=== PATIENT | male | born 1935 | race Caucasian/White ===

== ENCOUNTER 2019-08-20 10:53 | Inpatient (IN) | payer OTHER, BC ==
[~2019-08-20] VITALS: Ht 177.8 cm; Wt 52.7 kg
[2019-08-20] VITALS (10 sets, daily range): BP systolic 88–146; BP diastolic 52–92
--- NOTE | ~2019-08-20 | EMS ---
[address] [address] EMS Patient Care Report Name: GARRETT REILLY Room #: 170-6 ADM IN M.R.#: [id number] Admission: 08/20/19 Attend Phys: Davian Taylor MD Discharge: Date of : 36 Report #: [id number] THIS REPORT FOR: //name// Report Transmitted: 08/20/2019 14:40 EMS Care Summary [facility] MED-ACT Incident [id number] @ 08/20/2019 10:14 Incident Location [address] [place] [address] Patient GARRETT REILLY Male, 84 Years 1935 Patient Address [address] [place] [address] Patient History Dementia,Hypertension (HTN),Alzheimer's,Hyperlipidemia,Atrial Fibrillation,Hypothyroidism,Insomnia, Patient Allergies Aspirin, Patient Medications Trazodone, Tamsulosin, Donepezil, Levothyroxine, Simvastatin, Finasteride, Sertraline, Carvedilol, Chief Complaint nausea, vomiting, diarrhea Disposition Transported No Lights/[place] [facility] Transported To [facility] Narrative Alejo was found in his shower with staff getting Alejo cleaned up and washed. Staff reported about 30 minutes prior, Alejo was changed and given breakfast. [address] [address] EMS Patient Care Report Name: GARRETT REILLY Room #: 170-6 ADM IN Joan.#: [id number] Admission: 08/20/19 Attend Phys: Davian Taylor MD Discharge: Date of : 36 Report #: [id number] They walked by to see Alejo with head laceration, so they investigated. They noticed Alejo had vomited and had diarrhea all over himself. Staff denied Alejo being on any blood thinners. Staff stated [facility] of choice. Alejo stated he was feeling better. He was assisted from shower to cot then moved to unit. Vitals and ECG monitored, cold pack applied to head and knee. [facility] contacted. Improvement in Alejo's nausea and vomiting. Patient care transferred to [facility]. Alejo was moved to hospital bed via sheet pull. Initial Vitals @10:38P: 80,BP: 120/29,SpO2: 89, @10:36P: 102,SpO2: 87,FL Suspected: false @10:27P: 80,R: 16,BP: 101/65,Pain: 0/10,GCS: 15,Temp: 96.9F,SpO2: 93,Revised Trauma: 12, @10:47P: 79,R: 18,BP: 110/63,Pain: 0/10,SpO2: 98,FL Suspected: false @10:39P: 73,BP: 107/59,SpO2: 97, @10:44P: 68,SpO2: 95, Assessments @10:25MENTAL:Confused,Place Oriented,Person Oriented,SKIN:HEENT:Head/Face: Other,Eyes: Left Pupil: 4-mm,Eyes: Right Pupil: 4-mm,Neck/Airway: No Abnormalities,LUNG SOUNDS:ABDOMEN:PELVIS//GI:EXTREMITIES:Right Leg: Other,Left Arm: No Abnormalities,Right Arm: No Abnormalities,Left Leg: No Abnormalities,PULSE:NEURO:No Abnormalities, Impression Nausea Procedures @10:25Ondansetron - 4 Milligrams (mg) - OralResponse: Improved Timeline 10:12,Call Received 10:12,Psap Call 10:14,Dispatched 10:14,En Route 10:16,On Scene 10:20,At Patient 10:25,Ondansetron - 4 Milligrams (mg) - Oral,Response: Improved 10:27,BP: 101/65 M,PULSE: 80,RR: 16 R,SPO2: 93 Ox,ETCO2: ,BG: ,PAIN: 0,GCS: 15, 10:32,Depart Scene 10:36,BP: / M,PULSE: 102,RR: R,SPO2: 87 Ox,ETCO2: ,BG: ,PAIN: ,GCS: , 10:38,BP: 120/29 M,PULSE: 80,RR: R,SPO2: 89 Ox,ETCO2: ,BG: ,PAIN: ,GCS: , 10:39,BP: 107/59 M,PULSE: 73,RR: R,SPO2: 97 Ox,ETCO2: ,BG: ,PAIN: ,GCS: , 10:44,BP: / M,PULSE: 68,RR: R,SPO2: 95 Ox,ETCO2: ,BG: ,PAIN: ,GCS: , 10:46,At Destination [facility] [address] [place] [address] EMS Patient Care Report Name: GARRETT REILLY Room #: 170-6 ADM IN M.R.#: [id number] Admission: 08/20/19 Attend Phys: Davian Taylor MD Discharge: Date of : 36 Report #: [id number] 10:47,BP: 110/63 M,PULSE: 79,RR: 18 R,SPO2: 98 Ox,ETCO2: ,BG: ,PAIN: 0,GCS: , 11:00,Call Closed Disclaimer v1.1 Copyright 2020 [employer] This EMS Care Summary contains data elements from the applicable legal record (which may be displayed differently). It is designed to provide pertinent information for the following purposes: continuity of care, clinical quality, and state data reporting. The complete legal record is available to ED staff and administrators of the receiving hospital in [employer]'s Patient Tracker. All data is provided "as is."
[2019-08-20] MEDS ORDERED: ARICEPT10 M1 PO (11:25)
[2019-08-20] MEDS ORDERED: LEVO-T100 MCG PO (11:25)
[2019-08-20] MEDS ORDERED: CARVEDILOL12.5 MG PO (11:25)
[2019-08-20] MEDS ORDERED: PROSCAR 5MG TABL5 M1 PO (11:25)
[2019-08-20] MEDS ORDERED: LISINOPRIL2.5 MG PO (11:26)
[2019-08-20] MEDS ORDERED: NAMENDA 10 MG T10 MG PO (11:26)
[2019-08-20] MEDS ORDERED: SERTRALINE HCL100 MG PO (11:27)
[2019-08-20] MEDS ORDERED: SIMVASTATIN80 MG PO (11:27)
[2019-08-20] MEDS ORDERED: FLOMAX0.4 MG PO (11:28)
[2019-08-20] MEDS ORDERED: ZINC SULFATE220 MG PO (11:29)
[2019-08-20] MEDS ORDERED: TRAZODONE HCL50 MG PO (11:29)
[2019-08-20] MEDS ORDERED: SEROQUEL 25 MG25 MG PO (11:30)
[2019-08-20 11:45] LABS: ABSOLUTE NEUTROPHILS 6.5 thou/uL (1.4-8.2); BASOPHILS 0.4 % (0.0-2.0); EOSINOPHILS 1.6 % (0.0-3.0); HEMATOCRIT 42.7 % (42.0-52.0); HEMOGLOBIN 14.3 gm/dL (14.0-18.0); LYMPHOCYTES 9.2 % (24.0-44.0); MCH 32.8 pg (26.0-34.0); MCHC 33.5 g/dL (28.0-37.0); MCV 98.1 fL (80.0-100.0); MONOCYTES 8.4 % (1.0-8.0); PLATELET COUNT 182 thou/uL (150-400); POLYS 80.4 % (36.0-66.0); RBC 4.36 mil/uL (4.50-6.00); RDW 12.8 % (10.5-14.5); WBC 8.1 thou/uL (4.0-11.0)
[2019-08-20 11:55] LABS: ANION GAP 9 mmol/L (7-16); BUN 21 mg/dL (7-18); CALCIUM 9.7 mg/dL (8.5-10.1); CHLORIDE 104 mmol/L (98-107); CO2 27 mmol/L (21-32); CREATININE 1.1 mg/dL (0.7-1.3); GLUCOSE 108 mg/dL (74-106); POTASSIUM 4.4 mmol/L (3.5-5.1); SODIUM 140 mmol/L (136-145)
[2019-08-20 12:06] LABS: ALBUMIN 3.7 g/dL (3.4-5.0); LIPASE 222 U/L (73-393); SGOT 60 U/L (15-37); SGPT 34 U/L (30-65); TOTAL BILIRUBIN 0.5 mg/dL (<0.1-1.0); TOTAL PROTEIN 7.2 g/dL (6.4-8.2); TROPONIN-I <0.06 ng/mL (<0.06)
--- NOTE | 2019-08-20 12:15 | NUR ---
DR MODI CALLS AND STATES TO THIS PIPE TESTING TECHNICIAN THAT THE SNF THAT PT COMES FROM HAS MULTIPLE POSITIVE CASES OF COVID-19. DR VERDUGO UPDATED. PT PLACED IN PERCAUSTIONS AT THIS TIME AND ALL DEPTS UPDATED TO BE PLACED ON THE LIST
[2019-08-20 14:10] LABS: URINE BILIRUBIN NEGATIVE (Negative); URINE BLOOD NEGATIVE (Negative); URINE CLARITY CLEAR; URINE COLOR YELLOW; URINE GLUCOSE-RANDOM* NEGATIVE (Negative); URINE KETONES NEGATIVE (Negative); URINE NITRITE-REFLEX NEGATIVE (Negative); URINE PROTEIN (DIPSTICK) NEGATIVE (Negative); URINE SPECIFIC GRAVITY 1.015 (1.005-1.035); URINE UROBILINOGEN 0.2 E.U./dl (0.2-1.0)
[2019-08-20 14:13] LABS: URINE LEUKOCYTES-REFLEX 2+ (Negative)
[2019-08-20 14:19] LABS: BACTERIA-REFLEX >30 Many /HPF (None Seen); SQUAMOUS None Seen /LPF (0-3); URINE RBC None Seen /HPF (0-2); URINE WBC-REFLEX >25 Many /HPF (0-5)
[2019-08-20 14:20] LABS: CASTS None Seen /LPF (None Seen); CRYSTALS None Seen /LPF (None Seen)
--- NOTE | 2019-08-20 15:21 | NUR ---
SPOKE WITH YANN POWER AT FACILITY. TO GIVE UPDATE ON PT.
[2019-08-20 16:27] LABS: ALBUMIN 3.8 g/dL (3.4-5.0); TOTAL PROTEIN 7.2 g/dL (6.4-8.2)
[2019-08-20 16:54] LABS: TSH 3.189 uIU/mL (0.358-3.740)
--- NOTE | 2019-08-20 18:44 | NUR ---
ASSUMED CARE OF PATIENT FROM ED AT 1656. PATIENT IN ISOLATION FOR COVID RULE OUT. PAITENT ALERT TO SELF, PLACE AND SITUATION. PATIENT IN AFIB WITH HR INCREASING TO 150S, SUSTAINING FOR 15 MIN. CARDIZEM DRIP ORDERED BY DR. MONROY AND CALLED PHARMACY TO APPROVE SEND VIA LIFT. PATIENT IS IMPULSIVE, BED ALARM SET. PATIENT DENIES ANY NAUSEA AND NO VOMITING WHILE ON 3W. PATIENT TO CONTINUE WITH POC.
--- NOTE | 2019-08-20 19:30 | NUR ---
Patient confused, got out of bed, looking for his shoes to go home. Would not listen to verbal instruction to sit down. Strong but gait unsteady. He managed to snap iv tubing apart. Assisted back to bed. Fall precautions in place.
[2019-08-21 01:30] VITALS: BP 95/55
[2019-08-21 02:30] VITALS: BP 90/57
[2019-08-21 04:25] VITALS: BP 115/62
--- NOTE | 2019-08-21 04:48 | NUR ---
Patient making slow progress towards outcome goals. Denies pain. OFF Cardizem drip. HR 60's and sbp dropped to 88, BP now up to 115/67 HR 60's. Rhthm still Afib that is baseline for patient. IV fluids infusing. Temp 99.2 orally. Agiation resolved after PRN Seroquel. High fall risks, fall precautions in place.
[2019-08-21 05:48] LABS: HEMATOCRIT 34.6 % (42.0-52.0); MCH 32.5 pg (26.0-34.0); MCV 98.5 fL (80.0-100.0); RBC 3.52 mil/uL (4.50-6.00); RDW 13.4 % (10.5-14.5); WBC 13.6 thou/uL (4.0-11.0)
[2019-08-21 05:49] LABS: HEMOGLOBIN 11.4 gm/dL (14.0-18.0)
[2019-08-21 06:02] LABS: CALCIUM 8.3 mg/dL (8.5-10.1); CREATININE 1.1 mg/dL (0.7-1.3); MAGNESIUM 1.6 mg/dL (1.8-2.4); PHOSPHORUS 3.5 mg/dL (2.5-4.9); POTASSIUM 4.1 mmol/L (3.5-5.1)
--- NOTE | 2019-08-21 08:20 | EKG ---
[facility] [place] [address] ELECTROCARDIOGRAM REPORT Name: GARRETT REILLY Room #: 361-P ADM IN M.R.#: [id number] Admission: 08/20/19 Attend Phys: Davian Taylor MD Discharge: Date of : 36 Report #: [id number] THIS REPORT FOR: cc: FAM - Family physician unknown FAM - Family physician unknown Yonas Davis MD ~ THIS REPORT FOR: //name// [facility] ED Test Date: 2019-08-20 Test Time: 11:05:54 Pat Name: GARRETT REILLY Department: Room: [facility] Gender: M Clinical Appeals Specialist: [facility] : 1935 Requested By: Torey Vieira Order Number: [id number] MD: Yonas Davis Measurements Intervals [place] Rate: 70 P: CO: QRS: 11 QRSD: 69 T: 13 QT: 399 QTc: 431 Interpretive Statements Atrial fibrillation Probable anteroseptal infarct, old No previous ECG available for comparison Electronically Signed On 08-21-2019 8:18:47 CDT by Yonas Davis [email or web address] <ELECTRONICALLY SIGNED> By: Yonas Davis MD 08/21/19 0818 1105 1105 Yonas Davis MD /[place]
[2019-08-21 08:41] VITALS: BP 100/64
--- NOTE | 2019-08-21 09:59 | NUR ---
Nutrition: RD received consult stating pt from facility. Admit with CP, UTI, S/P fall, head laceration. COVID pending. N/V/D at facility, KUB showed nonspecific bowel gas pattern. Clear liquid diet at present. PMH includes dementia and pt alert to self/impulsive. S/W Brianna over phone. She relays pt has gained 20# since moving to the Memory care unit in May. BMI 20, normal status. Intake has been very good and pt does not use supplements. Monitor for timely diet advancement but place as low nutrition risk for now.
--- NOTE | 2019-08-21 11:51 | NUR ---
INITIAL ASSESSMENT: FER reviewed chart and spoke with nursing and attending physician. Pt was admitted from [facility] due to UTI/recent fall. Pt was placed in Enhanced Isolation to r/o COVID-19. Pt's test is negative. Pt with hx of dementia. FER spoke with ILIANA Magdaleno at [facility] who states pt has been in their facility since May of this year. Prior to admission, pt was not using any DME. Pt has been able to feed him self and would need set up for showering/bathing/grooming. Facility SPLASH LINE OPERATOR recommended pt go to [facility] for short term rehab stay prior to returning to [facility]. FER spoke with pt's , Brianna, via phone. Introduced role of FER. Pt's is agreeable with referral to [facility] SNF. Awaiting therapy evals at this time. FER faxed clinical info and COVID-19 results to [facility] and notified liaison of new referral. FER is following to assist as needed with discharge planning.
--- NOTE | 2019-08-21 15:50 | NUR ---
TESTED NEGATIVE FOR COVID19 - RESWABBED TODAY. PENDING RESULTS.
--- NOTE | 2019-08-21 15:51 | NUR ---
ASSUMED CARE OF PT AT 0700. PT PLEASANTLY CONFUSED. VOICING NO CONCERNS. DENIES PAIN. BREATHING COMFORTABLY ON ROOM AIR. IMPULSIVE, MAKING ATTEMPS TO GET OUT OF BED, USUALLY WHEN NEEDING TO USE BATHROOM. INAVERTENTLY PULLED OUT IV. UP TO CHAIR WITH MEALS. VITALS STABLE. NO RESPIRATORY SYMTPTOMS. AFEBRILE. IV ABX INFUSING PER ORDER. FIRST COVID19 SWAB NEGATIVE. RESWABBED TODAY POST 24 HOURS. RESULTS PENDING. WILL CONT TO MONITOR.
[2019-08-21 17:01] VITALS: BP 137/74
[2019-08-21 18:57] VITALS: BP 134/69
--- NOTE | 2019-08-21 19:12 | NUR ---
PT SITTING IN CHAIR. TV ON. IVF INTACT. CHAIR ALARM ON. LUNGS DIMINISHED. PT ORIENTED TO SELF. PT CONVERSES CLEARLY, [facility] CONTACT. CHAIR ALARM ON. EXTREMITIES COOL TO THE TOUCH.
--- NOTE | 2019-08-21 19:58 | NUR ---
PT TALKING LOUDLY TO HIMSELF, STATING HE IS GOING TO GET OUT OF HERE. STATING LOOKING FOR HIS SHOES TO GO HOME. PT RESTLESS, KNOCKING ITEMS OFF TABLE, PRN X1. PT PROVIDED SNACK.
[2019-08-22 04:52] VITALS: BP 154/90
[2019-08-22 05:59] LABS: HEMATOCRIT 34.8 % (42.0-52.0); HEMOGLOBIN 11.6 gm/dL (14.0-18.0); MCH 32.8 pg (26.0-34.0); MCHC 33.3 g/dL (28.0-37.0); MCV 98.6 fL (80.0-100.0); RBC 3.53 mil/uL (4.50-6.00); RDW 13.2 % (10.5-14.5); WBC 11.2 thou/uL (4.0-11.0)
[2019-08-22 06:12] LABS: CALCIUM 8.2 mg/dL (8.5-10.1); CREATININE 1.1 mg/dL (0.7-1.3); MAGNESIUM 1.8 mg/dL (1.8-2.4); PHOSPHORUS 1.8 mg/dL (2.5-4.9); POTASSIUM 3.9 mmol/L (3.5-5.1)
[2019-08-22 08:52] VITALS: BP 141/84
--- NOTE | 2019-08-22 09:46 | NUR ---
PT 2ND COVID19 TEST CAME BACK NEGATIVE. WAITING ON HOSPITALIST AND INFECTIOUS DISEASE DOCTOR.
--- NOTE | 2019-08-22 10:23 | NUR ---
PT CARE ASSUMED AT 0700, PT ALERT AND ORIENTED X2, PLEASANTLY CONFUSED, IMPULSIVE AT TIMES. PT ABLE TO FOLLOW COMMANDS, DENIES ANY CHEST PAIN, NAUSEA AND VOMITING. PT IS ON ROOM AIR, NO SIGNS OF DISTRESS NOTED. PT IS UP IN CHAIR, CHAIR ALARM ON. DENIES NEEDS AT THE MOMENT. CALL LIGHT AND TABLE IN REACH. WILL CONTINUE TO MONITOR
--- NOTE | 2019-08-22 12:36 | NUR ---
PT 2ND COVID CAME BACK NEGATIVE, NO COUGH OR FEVER. PT IS ON ROOM AIRT, NO RESPIRATORY DISTRESS NOTED. INFECTIOUS DISEASE PAGED A COUPLS OF TIMES, NO ANSWER YET.
[2019-08-22 15:30] VITALS: BP 139/73
--- NOTE | 2019-08-22 15:47 | NUR ---
REPORT GIVEN TO YANN MARS. PT BELONGINGS PACKED AND TRANSFER TO 2N, 203
--- NOTE | 2019-08-22 16:46 | NUR ---
PATIENT TRANSFERRED TO FROM AT 1530. PATIENT BROUGHT VIA WHEELCHAIR AND AMBULATED TO THE CHAIR A STAND BY ASSIST. PATIENT PLACED IN 203, NEAR THE NURSE'S STATION DUE TO CONFUSION AND IMPULSIVE NATURE. ASSESSMENT COMPLETED. TELE PLACED ON THE PATIENT. PATIENT RESTING COMFORTABLY IN THE CHAIR WITH THE CHAIR ALARM ON.
[2019-08-22 19:20] VITALS: BP 150/96
--- NOTE | 2019-08-22 19:54 | NUR ---
ASSUMED CARE OF PATIENT A TRANSFER FROM . ASESSMENT COMPLETED. PATIENT RESTING COMFORTABLY IN BED WITH ALARM ON. PATIENT IS IMPULSIVE. IV ABX. HR RATE INCREASES TO 140-1500 WITH ACTIVITY. PATIENT TO CONTINUE WITH POC.
[2019-08-22 23:44] VITALS: BP 154/92
--- NOTE | 2019-08-23 00:52 | NUR ---
TOOK OVER CARE AT 2300. PT AWAKE AND RESTLESS IN BED. ASSISTED WITH URINATION AND UP TO CHAIR. ALARM SET. IVF INTACT.
--- NOTE | 2019-08-23 02:15 | NUR ---
PT UP EVERY HOUR TO URINATE 100 TO 150CC. PT HAD 3 SMALL BMS.
[2019-08-23 04:33] VITALS: BP 142/86
[2019-08-23 04:35] LABS: HEMOGLOBIN 13.1 gm/dL (14.0-18.0); MCH 32.8 pg (26.0-34.0); MCHC 33.6 g/dL (28.0-37.0); MCV 97.8 fL (80.0-100.0); RBC 3.99 mil/uL (4.50-6.00); RDW 12.9 % (10.5-14.5); WBC 12.2 thou/uL (4.0-11.0)
[2019-08-23 04:50] LABS: CALCIUM 8.8 mg/dL (8.5-10.1); CREATININE 0.9 mg/dL (0.7-1.3); MAGNESIUM 1.6 mg/dL (1.8-2.4); PHOSPHORUS 1.7 mg/dL (2.5-4.9); POTASSIUM 3.6 mmol/L (3.5-5.1)
[2019-08-23 07:20] VITALS: BP 167/80
[2019-08-23 16:30] VITALS: BP 130/81
--- NOTE | 2019-08-23 18:02 | NUR ---
ASSUMED CARE OF PATIENT AT 0700. ASSESSMENT COMPLETED. PATIENT ALERT TO SELF, PLEASANT. PATIENT IMPULSIVE. AMBULATES TO BATHROOM STAND BY ASSIST. IV ABX. DENIES PAIN. PT TO CONTINUE WITH POC.
[2019-08-23 19:59] VITALS: BP 95/73
[2019-08-24] VITALS (8 sets, daily range): BP systolic 127–150; BP diastolic 72–88
[2019-08-24 04:47] LABS: HEMOGLOBIN 12.6 gm/dL (14.0-18.0); MCH 33.2 pg (26.0-34.0); MCHC 34.1 g/dL (28.0-37.0); MCV 97.2 fL (80.0-100.0); RBC 3.81 mil/uL (4.50-6.00); RDW 12.6 % (10.5-14.5); WBC 10.4 thou/uL (4.0-11.0)
[2019-08-24 04:51] LABS: CALCIUM 8.3 mg/dL (8.5-10.1); CREATININE 0.9 mg/dL (0.7-1.3); MAGNESIUM 1.5 mg/dL (1.8-2.4); POTASSIUM 3.4 mmol/L (3.5-5.1)
--- NOTE | 2019-08-24 06:39 | NUR ---
ALERT TO SELF.CONFUSED.SLEPT ALMOST ALL NIGHT.REPOSITIONED Q2 HOURS AND NEEDED.MAG AND K REPLACED THIS AM.MONITOR SHOWS AFIB.POC CONTINUED.
--- NOTE | 2019-08-24 09:08 | 2DMMODE ---
[facility] [place] [address] 2 D/M-MODE ECHOCARDIOGRAM Name: GARRETT REILLY Room #: 203-P ADM IN M.R.#: [id number] Admission: 08/20/19 Attend Phys: Davian Taylor MD Discharge: Date of : 36 Report #: [id number] THIS REPORT FOR: cc: FAM - Family physician unknown FAM - Family physician unknown Denys Montanez MD ~ APPROVED REPORT Study performed: 08/22/2019 10:04:47 EXAM: Comprehensive 2D, Doppler, and color-flow Echocardiogram Patient Location: Bedside Room #: 361 Status: routine BSA: 1.79 HR: 60 bpm BP: 141/84 mmHg Rhythm: Atrial Fibrillation Other Information Study Quality: Adequate Indications Atrial Fibrillation Hypertension/HDD Elevated BNP, HLD 2D Dimensions RVDd: 37.83 mm IVSd: 8.26 (7-11mm) LVOT Diam: 22.44 (18-24mm) LVDd: 41.38 mm PWd: 8.26 (7-11mm) Ascending Ao: 29.52 (22-36mm) LVDs: 32.23 (25-40mm) Aortic Root: 28.06 mm IVC: 24.00 mm Volumes Left Atrial Volume (Systole) Single Plane 4CH: 73.37 mL Single Plane 2CH: 67.66 mL LA ESV Index: 42.00 mL/m2 Aortic Valve AoV Peak Dontrell.: 1.02 m/s AO Peak Gr.: 4.19 mmHg LVOT Max P.87 mmHg LVOT Max V: 0.47 m/s [facility] [address] [place] [address] 2 D/M-MODE ECHOCARDIOGRAM Name: GARRETT REILLY Room #: 203-P ADM IN M.R.#: [id number] Admission: 08/20/19 Attend Phys: Davian Taylor, Discharge: Date of : 36 Report #: [id number] Vmax: 1.80 cm2 Mitral Valve MV Decel. Time: 154.32 ms MV E Max Dontrell.: 0.97 m/s IVRT: 89.20 ms Pulmonary Valve PV Peak Dontrell.: 0.90 m/s PV Peak Gr.: 3.22 mmHg Tricuspid Valve TR Peak Dontrell.: 2.44 m/s RAP Estimate: 15.00 mmHg TR Peak Gr.: 23.76 mmHg PA Pressure: 39.00 mmHg Left Ventricle The left ventricle is normal size. There is normal left ventricular wall thickness. Left ventricular systolic function is mild to moderately decreased. LVEF is 40-45%. This study is not technically sufficient to allow evaluation of the LV diastolic function due to atrial fibrillation. Right Ventricle The right ventricle is normal size. Atria Left atrium is severely dilated. Right atrium is mildly dilated. Aortic Valve Aortic valve is mildly calcified. Trace aortic regurgitation. There is no aortic valvular stenosis. Mitral Valve The mitral valve is normal in structure. Moderate to severe mitral regurgitation No evidence of mitral valve stenosis. Tricuspid Valve The tricuspid valve is normal in structure. Mild tricuspid regurgitation. PAP is estimated at 35 mmHg. Pulmonic Valve The pulmonary valve is normal in structure. Mild pulmonic regurgitation. Great Vessels [facility] [address] [place] [address] 2 D/M-MODE ECHOCARDIOGRAM Name: GARRETT REILLY Room #: 203-P ADM IN M.R.#: [id number] Admission: 08/20/19 Attend Phys: Davian Taylor, Discharge: Date of : 36 Report #: [id number] The aortic root is normal in size. IVC is dilated and collapses <50% with inspiration. Pericardium There is no pericardial effusion. <Conclusion> The left ventricle is normal size. Left ventricular systolic function is mild to moderately decreased. LVEF is 40-45%. The right ventricle is normal size. Left atrium is severely dilated. Aortic valve is mildly calcified. Moderate to severe mitral regurgitation Mild tricuspid regurgitation. PAP is estimated at 35 mmHg. <ELECTRONICALLY SIGNED> By: Denys Montanez MD 08/24/19905 5 5 Denys Montanez MD /INF
--- NOTE | 2019-08-24 12:05 | NUR ---
Followup: reconsulted to evaluate. Hx fall, head laceration, UTI. Pt sleeping at time of visit. Spoke with nurse, pt has been impulsive, no eating as well this am. Phos, Mg low and needing replacement. Prealbumin wnl. Past original consult, had stated pt had gained nearly 20 lb while at Memory Care unit. Will add oral supplement ensure enlive bid as pt borderline low BMI and not eating well this past couple days. No new wt. Remains low nutrition risk.
--- NOTE | 2019-08-24 13:42 | NUR ---
SW reviewed chart and spoke with attending physician. Pt was transferred to from 3W after second negative COVID-19 test. invoicing machine operator to fax clinical updates and therapy evals to [facility] when available. Discharge to SNF is anticipated for tomorrow. SW notified [facility] liaison of anticipated discharge for tomorrow. FER spoke with pt's , Brianna, via phone to provide update and discuss discharge plan. Brianna is aware and in agreement with plan. FER is following to assist as needed with discharge planning.
--- NOTE | 2019-08-24 15:51 | NUR ---
FAXED CLINICAL UPDATE TO [facility] OF OP SPOKE WITH RAFAT IN ADM SHE RECEIVED UPDATE POSS DC TOMORROW. DP TO FOLLOW.
--- NOTE | 2019-08-24 18:37 | NUR ---
PT CARE ASSUMED AT 0700. ASSESSMENTS CHARTED. MEDICATION CHARTED. MEDICATION NEEDS TO BE EITHER ONE TAB AT A TIME OR CRUSHED, PT WILL CHEW OTHERWISE. UP IN CHAIR 6 HOURS, TOLERATED WELL. PT CALLS FOR URINAL. PT TO REHAB - [facility], POSSIBLY TOMORROW WAS TOLD IT WOULD BE TODAY.
[2019-08-25] VITALS (15 sets, daily range): BP systolic 95–148; BP diastolic 51–94
--- NOTE | 2019-08-25 03:47 | NUR ---
ALERT TO SELF.CONFUSED.REPOSITIONED Q2 HOURS AND NEEDED.SLEPT MOST OF THE NIGHT.MONITOR SHOWS AFIB.POSSIBLE D/C TODAY.POC CONTINUED.
[2019-08-25 09:10] LABS: ALBUMIN 2.5 g/dL (3.4-5.0); CALCIUM 8.1 mg/dL (8.5-10.1); CREATININE 1.1 mg/dL (0.7-1.3); MAGNESIUM 1.6 mg/dL (1.8-2.4); POTASSIUM 3.6 mmol/L (3.5-5.1); TOTAL BILIRUBIN 0.9 mg/dL (<0.1-1.0); TOTAL PROTEIN 6.1 g/dL (6.4-8.2)
--- NOTE | 2019-08-26 03:46 | NUR ---
ASSUMED PT CARE AT AROUND 1900, PT IS AWAKE, ALERT AND ORIENTEDX4, SR ON THE MONITOR, DENIES PAIN, SOB, DIZZINESS OR LIGHTHEADEDNESS, VSS, ASSESSMENTS CHARTED, CONSENT SIGNED FOR PROCEDURE TODAY, PT IS LAYING IN BED AND WATCHING TV AT THIS TIME, NO DISTRESS NOTED, WILL CONTINUE TO MONITOR
--- NOTE | 2019-08-26 04:23 | NUR ---
ASSUMED PT CARE AT 1900, PT IS ALERT, AWAKE, ORIENTED TO PERSON, AFIB ON THE MONITOR, REMAINED IN BED WHOLE NIGHT HR STABLE, ASSESSMENTS CHARTED, DENIES PAIN OR SOB, VSS ON 5L NC, TOLERATING WELL, NO EPISODES OF AGITATION THUS FAR, LAYING IN BED AT THIS TIME, NO DISTRESS NOTED, WILL CONTINUE TO MONITOR
[2019-08-26 05:00] VITALS: BP 133/66
[2019-08-26 07:36] VITALS: BP 124/63
--- NOTE | 2019-08-26 11:41 | NUR ---
ASSUMMED PT CARE AT APPROXIMATELY 1115. PT AWAKE AND ORIENTED TO SELF AND LOCATION. PT C HX OF DEMENTIA. REORIENTATION PROVIDED. ASSESSMENT CHARTED. PT COMFORTABLE IN BED. PT DENIES HAVING FURTHER CONCERNS. HR AND VITAL SIGNS STABLE.
[2019-08-26 11:53] VITALS: BP 121/71
--- NOTE | 2019-08-26 14:25 | NUR ---
FAXED CLINICAL UPDATE TO [facility] OF OP RECEIVED CONFIRMATION AND SPOKE WITH RAFAT CABRALES THAT PT SHOULD DC TOMORROW.
[2019-08-26 16:30] VITALS: BP 112/67
--- NOTE | 2019-08-26 17:45 | NUR ---
ASSUMMED PT CARE AT APPROXIMATELY 1115. PT AWAKE AND ORIENTED TO PERSON AND LOCATION. PT C HX OF DEMENTIA. FREQUENT REORIENTATION PROVIDED. FALL PRECATIONS IN PLACE. ASSESSMENT CHARTED. PT UP TO CHAIR THROUGHOUT SHIFT. PT WORKED C PHYSICAL AND OCCUPATIONAL THERAPY. PHYSICAL THERAPY STATED THE PT USES WALKER C X2 ASSIST. ELECTROLYTE PROTOCOL FOLLOWED. VITAL SIGNS STABLE. INFORMED DR. CALHOUN OF PT'S LOW GRADE FEVER. MEDS GIVEN. PT AFEBRILE. PT COMFORTABLE IN BED. PT DENIES HAVING FURTHER CONCERNS.
[2019-08-26 19:15] VITALS: BP 125/66
[2019-08-27 04:04] VITALS: BP 139/68
--- NOTE | 2019-08-27 05:01 | NUR ---
ASSUMED CARE AT 1845. PATIENT IS PROGRESSING IN HIS CARE PLAN. VITAL SIGNS STABLE WITH PATIENT HAVING NO COMPLAINTS OF PAIN OR NAUSEA. BREATHING STABLE ON LOW LEVEL OXYGEN EVIDENCED BY ASSESSMENT AND SPOT OXYGENATION CHECKS. PATIENT REMAINS PLEASANTLY CONFUSED AND IS UNABLE TO CALL APPROPRIATELY FOR NEEDS. PROBABLE DISCHARGE TODAY. CONTINUE PLAN OF CARE.
[2019-08-27 07:20] VITALS: BP 136/71
[2019-08-27 07:50] VITALS: BP 136/71
--- NOTE | 2019-08-27 14:03 | NUR ---
[facility] SN[facility] liason updated. Pt getting iv lasix today. Possible dc to snf tomorrow. They will have a bed for him. Pt's updated as well.
--- NOTE | 2019-08-27 14:22 | NUR ---
PT. MOVED TO CHAIR AFTER LUNCH, TOLERATED TRANSFER WELL. CLEANED PT. OF BM AT THIS TIME, SEMI FORMED. DENIES ANY PAIN AT PRESENT.
[2019-08-27 16:21] VITALS: BP 136/71
--- NOTE | 2019-08-27 16:22 | NUR ---
Specifications Writer spoke with the pt's Brianna about dc to SNF at [facility] tomorrow. Pt getting iv lasix today. Pt's requested tag writer speak with the ILIANA Magdaleno at the [facility] as she would prefer he return directly there if possible. She does not feel going to a different place or skilled rehab would be benefical to him as he has enstage dementia and chf. She states that he is a DNR. Specifications Writer spoke with Sharla the ILIANA [phone]. She requested a clinical update to [facility] with [facility] and they feel the pt may benefit from hospice care. They reached out to the pt's to discuss. Call back rec'd from Sharla and she reports that the pt is agreeable to using [facility] and having him return there with more supportive care. They can accept him back tomorrow if all DME and hospice admission in progress. Pt will need o2, w/c and a hospital bed. Nursing and the attending updated. The atending to call pt's spouse and verify request for DNR status as well as wish for pt to have hospice services at mt. Referral called and faxed to [facility]. They will order pt's dme for setup in the am once dc is confirmed. Pt's living will directive and DPOA for HC is on the chart. Brianna is his dpoa. [facility] SN[facility] liason notified of change in his dc plan. Will f/u with all parties in the am to confirm his dc plan and finalize the arrangements. Pt will need stretcher van transport.
[2019-08-27 16:25] VITALS: BP 116/71
--- NOTE | 2019-08-27 18:23 | NUR ---
RETURNED PT. T BED CHANGED HIM MANY TIMES TODAY FROM [facility], STRONG URINE OUTPUT. PT. STILL CONFUSED BUT CALM AND COMPLIANT WITH PLAN OF CARE. SPOKE TO TRAINING AND DEVELOPMENT DIRECTOR FAMILY WANTS HIM NOW TO RETURN HOME ON HOSPIRCE VERSUS GOING TO A REHAB FACILITY PER HIS WISHES TO BE A DNR WHICH IS ON THE CHART WELL. ANGELICA GO HOME TOMORROW.
[2019-08-27 19:21] VITALS: BP 138/79
[2019-08-28 03:54] VITALS: BP 122/56
--- NOTE | 2019-08-28 04:17 | NUR ---
PT AROUSABLE, REMAINS ORIENTED TO NAME, AND FOLLOWS SOME COMMANDS, VSS, CHRONIC AFIB, PLACED CONDOM CATHETER AFTER BOUTS OF INCON'T, NO SIGNS OF PAIN, PT REPOSITIONED AND CLEANED UP AFTER SEVERAL BOUTS OF INCON'T, WILL CON'T TO MONITOR PER PPOC.
[2019-08-28 04:26] LABS: HEMATOCRIT 36.3 % (42.0-52.0); HEMOGLOBIN 12.4 gm/dL (14.0-18.0); MCH 32.8 pg (26.0-34.0); MCHC 34.1 g/dL (28.0-37.0); MCV 96.3 fL (80.0-100.0); RBC 3.77 mil/uL (4.50-6.00); RDW 12.6 % (10.5-14.5); WBC 13.8 thou/uL (4.0-11.0)
[2019-08-28 04:44] LABS: CALCIUM 8.3 mg/dL (8.5-10.1); POTASSIUM 3.3 mmol/L (3.5-5.1)
[2019-08-28 07:30] VITALS: BP 126/108
[2019-08-28 10:13] VITALS: BP 126/108
--- NOTE | 2019-08-28 11:45 | NUR ---
Arrangements in place for the pt to dc back to his memory care facility with [facility] services. [facility] ambulance has been arranged for a 1pm pickup. Nusing to call report. Pt's spouse updated and she has talked with the hospice nurse this morning. Hospice is emailing her dtr their admission paperwork. Dc service planner to fax pt's dc summary/instructions to both the [facility] and hospice. All parties updated. Pt is oriented to self only. He is currently on 3lnc of o2. Hospice has arranged for delievery of dme this morning to include o2, w/c, and hospital bed. Dc plan confirmed with he facility DON as well. All parties are in agreement of the dc plan.
[2019-08-28] MEDS ORDERED: ATENOLOL 50MG T50 M1 PO (12:03)
[2019-08-28] MEDS ORDERED: AUGMENTIN 875-1 EACH PO (12:03)
--- NOTE | 2019-08-28 16:24 | NUR ---
FAXED DC ORDER/SUMMARY TO [facility] SPOKE WITH ADM THEY RECEIVED ORDERS ALSO FAXED TO [facility] SPOKE WITH RAFAT PADILLA LIACHELSEA SHE RECEIVED ORDERS.
== END 2019-08-28 14:17 | disposition hospice, inpatient (51) | DRG 177 ==
LOC: ER 10:53 → EROBS 15:05 → 3W 15:05 → 2N 15:05 → 3W 17:03 → 2N 08-22 15:32
PROVIDERS: Emergency Medicine; Hospitalist; Internal Medicine Cardiovascular Disease; Nurse Practitioner Adult Health; ADMIT Internal Medicine
PROC: 0HQ1XZZ Repair Face Skin, External Approach (ICD-10-PCS; principal; 2019-08-20)
DX: J69.0 Pneumonitis due to inhalation of food and vomit (principal); I50.23 Acute on chronic systolic (congestive) heart failure; G92 Toxic encephalopathy; N39.0 Urinary tract infection, site not specified; I48.21 Permanent atrial fibrillation; E46 Unspecified protein-calorie malnutrition; S01.81XA Laceration without foreign body of other part of head, initial encounter; F03.90 Unspecified dementia, unspecified severity, without behavioral disturbance, psychotic disturbance, mood disturbance, and anxiety; E78.00 Pure hypercholesterolemia, unspecified; G47.00 Insomnia, unspecified; N40.0 Benign prostatic hyperplasia without lower urinary tract symptoms; E03.9 Hypothyroidism, unspecified; E78.5 Hyperlipidemia, unspecified; Z88.6 Allergy status to analgesic agent; I11.0 Hypertensive heart disease with heart failure; E83.42 Hypomagnesemia; Z20.828 Contact with and (suspected) exposure to other viral communicable diseases; K52.89 Other specified noninfective gastroenteritis and colitis; M62.84 Sarcopenia; I34.0 Nonrheumatic mitral (valve) insufficiency; Z66 Do not resuscitate; W18.39XA Other fall on same level, initial encounter; Y93.89 Activity, other specified; Y92.89 Other specified places as the place of occurrence of the external cause; Z79.01 Long term (current) use of anticoagulants; Y99.8 Other external cause status
CPT/HCPCS: 10081; 10879